=== PATIENT | female | born 1990 | race Caucasian/White ===

== ENCOUNTER 2022-05-08 16:34 | Emergency (ER) | payer OTHER ==
[2022-05-08 18:02] VITALS: BP 111/69; PULSE 80; RESP 20; TEMP 98.2; BMI 25.1
== END 2022-05-08 19:21 | disposition home or self-care (01) ==
LOC: JER 16:34
DX: J11.1 Influenza due to unidentified influenza virus with other respiratory manifestations (principal)
CPT/HCPCS: 0241U-QW; 87651; 99283-25

== ENCOUNTER 2022-05-30 11:02 | Emergency (ER) | payer OTHER ==
[2022-05-30 11:21] VITALS: BP 123/66; PULSE 62; RESP 20; TEMP 98.8; BMI 26.4
[2022-05-30] MEDS ORDERED: LIDOCAINE 5% TOPICAL PATCH TP ONE (13:03)
[2022-05-30] MEDS ORDERED: IBUPROFEN 600 MG TABLET (FP) PO ONE ×2 (13:03→13:54)
[2022-05-30] MEDS ORDERED: LIDOCAINE 5% TOPICAL PATCH ONE (13:54)
[2022-05-30] MEDS ORDERED: LIDOCAINE PATCH REMOVAL MC SCH (22:00)
== END 2022-05-30 16:30 | disposition home or self-care (01) ==
LOC: JER 11:02
DX: S29.011A Strain of muscle and tendon of front wall of thorax, initial encounter (principal); X50.0XXA Overexertion from strenuous movement or load, initial encounter
CPT/HCPCS: 71101-TC-RT-FY; 71250-TC; 99284-25